=== PATIENT | female | born 1960 | race Caucasian/White ===

== ENCOUNTER → 2017-07-15 | Outpatient (REF) | payer OTHER ==
[2017-07-15 18:30] LABS: PLATELET COUNT, AUTOMATED 367 10^3/uL (150-450)
[2017-07-15 18:42] LABS: INR 0.88
[2017-07-15 18:43] LABS: PARTIAL THROMBOPLASTIN TIME 32.6 SECONDS (26.8-37.9)
== END ==
LOC: M LAB REF 17:26
DX: R91.8 Other nonspecific abnormal finding of lung field (principal)

== ENCOUNTER → 2017-08-06 | Outpatient (CLI) | payer OTHER ==
[~2017-08-06] MED LIST: ACETAMINOPHEN 325 MG TAB As Ordered; LIDOCAINE 1% MDV 20ML VIAL As Ordered
== END ==
LOC: M RADPRO 08:04
DX: C34.90 Malignant neoplasm of unspecified part of unspecified bronchus or lung (principal); R91.8 Other nonspecific abnormal finding of lung field; J95.811 Postprocedural pneumothorax; Z79.82 Long term (current) use of aspirin; Z79.899 Other long term (current) drug therapy; Z88.5 Allergy status to narcotic agent
CPT/HCPCS: 32405

== ENCOUNTER → 2017-08-24 | Outpatient (CLI) | payer OTHER | LOC: M PLARAD 13:19 | DX: C34.12 Malignant neoplasm of upper lobe, left bronchus or lung (principal) | CPT/HCPCS: 78815 ==

== ENCOUNTER → 2017-09-28 | Outpatient (CLI) | payer OTHER ==
[~2017-09-28] MED LIST changes: -ACETAMINOPHEN 325 MG TAB As Ordered; +ISOVUE-370 76% 100ML VIAL (Q9967) As Ordered; -LIDOCAINE 1% MDV 20ML VIAL As Ordered
== END ==
LOC: M RAD 14:00
DX: C43.1 Malignant melanoma of eyelid, including canthus (principal)

== ENCOUNTER → 2017-10-07 | Outpatient (CLI) | payer OTHER ==
[2017-10-07 12:32] LABS: ABG BASE EXCESS 6.2 (-2.0-2.0); ABG DEVICE ROOM AIR; ABG HCO3 30.4 MEQ/L (22.0-26.0); ABG O2 SATURATION 94.5 % (95.0-99.0); ABG PARTIAL PRESSURE O2 68.2 mmHg (75.0-100.0); ABG TOTAL CO2 31.7 MEQ/L (22.0-29.0); ABG pH (ARTERIAL) 7.478 UNITS (7.350-7.450)
[2017-10-07 12:45] LABS: CARBOXYHEMOGLOBIN 2.3 % (0.0-1.5)
[2017-10-07 12:46] LABS: HEMATOCRIT 44.5 % (36.0-47.0); HEMOGLOBIN 15.9 g/dl (12.0-15.5); MEAN CORPUSCULAR HEMOGLOBIN 32.7 pg (27.0-33.0); MEAN CORPUSCULAR HGB CONC 35.7 g/dl (32.0-36.5); MEAN CORPUSCULAR VOLUME 91.6 fl (80.0-96.0); PLATELET COUNT, AUTOMATED 341 10^3/uL (150-450); RED BLOOD COUNT 4.86 10^6/uL (4.00-5.40); RED CELL DISTRIBUTION WIDTH 12.4 % (11.5-14.5); WHITE BLOOD COUNT 12.5 10^3/uL (4.0-10.0)
[2017-10-07 12:51] LABS: APPEARANCE, URINE CLEAR (CLEAR); BACTERIA, URINE AUTO 2+ (NEGATIVE); BILIRUBIN, URINE AUTO NEGATIVE (NEGATIVE); BLOOD, URINE BLOOD NEGATIVE (NEGATIVE); COLOR, URINE STRAW (YELLOW); GLUCOSE, URINE (UA) AUTO NEGATIVE (NEGATIVE); KETONE, URINE AUTO NEGATIVE (NEGATIVE); LEUKOCYTE ESTERASE, URINE AUTO NEGATIVE (NEGATIVE); NITRITE, URINE AUTO NEGATIVE (NEGATIVE); PROTEIN, URINE AUTO NEGATIVE (NEGATIVE); RBC, URINE AUTO 1 /HPF (0-3); SPECIFIC GRAVITY URINE AUTO 1.002 (1.002-1.035); SQUAMOUS EPITHELIAL CELL UR AU 0 /HPF (0-6); UROBILINOGEN, URINE AUTO 0.2 mg/dL (0.0-2.0); WBC, URINE AUTO 1 /HPF (0-3)
[2017-10-07 12:57] LABS: INR 0.94; PROTHROMBIN TIME 12.7 SECONDS (12.1-14.4)
[2017-10-07 12:58] LABS: PARTIAL THROMBOPLASTIN TIME 31.7 SECONDS (25.4-37.6)
[2017-10-07 13:33] LABS: ANION GAP 9 MEQ/L (8-16); BLOOD UREA NITROGEN 10 MG/DL (7-18); CALCIUM LEVEL 9.4 MG/DL (8.5-10.1); CARBON DIOXIDE LEVEL 34 MEQ/L (21-32); CHLORIDE LEVEL 96 MEQ/L (98-107); CREATININE FOR GFR 0.71 MG/DL (0.55-1.30); GLOMERULAR FILTRATION RATE > 60.0 (>51); GLUCOSE, FASTING 91 MG/DL (70-100); SODIUM LEVEL 139 MEQ/L (136-145)
== END ==
LOC: M ADMPAT 10:04
DX: Z01.818 Encounter for other preprocedural examination (principal); C34.12 Malignant neoplasm of upper lobe, left bronchus or lung
CPT/HCPCS: 71046

== ENCOUNTER 2017-10-22 05:43 | Inpatient (IN) | payer OTHER ==
[2017-10-22] MEDS ORDERED: LIDOCAINE 1% MDV 20ML VIAL SQ (06:00)
[2017-10-22 06:18] LABS: CARBOXYHEMOGLOBIN 3.5 % (0.0-1.5)
[2017-10-22] MEDS: MUPIROCIN 2% OINT 22 GM TUBE TOP (06:40)
[2017-10-22 06:58] LABS: CARBOXYHEMOGLOBIN 2.4 % (0.0-1.5)
[2017-10-22] MEDS ORDERED: fentaNYL 100 MCG/2 ML INJECTION (J3010) As Ordered ×2 (07:06→14:12)
[2017-10-22] MEDS ORDERED: MIDAZOLAM INJ 2 MG/2 ML VIAL (J2250) As Ordered (07:06)
[2017-10-22] MEDS: MIDAZOLAM INJ 2 MG/2 ML VIAL (J2250) IV ×2 (07:09→07:34)
[2017-10-22] MEDS: fentaNYL 100 MCG/2 ML INJECTION (J3010) IV ×4 (07:10→14:15)
[2017-10-22] MEDS: CETACAINE SPRAY 5GM As Ordered (08:02)
[2017-10-22] MEDS ORDERED: ePHEDrine SULFATE 25 MG/5 ML(5MG/ML) SYRINGE As Ordered ×3 (09:29→13:32)
[2017-10-22] MEDS ORDERED: DESFLURANE 240 ML INHALANT As Ordered (09:29)
[2017-10-22] MEDS ORDERED: PHENYLephrine HCL 500 MCG/5 ML (100MCG/ML) SYRINGE (J2370) As Ordered (09:29)
[2017-10-22] MEDS ORDERED: fentaNYL 250 MCG/5 ML INJECTION (J3010) As Ordered (10:03)
[2017-10-22] MEDS ORDERED: METOCLOPRAMIDE INJ 10MG/2ML VIAL (J2765) As Ordered (10:03)
[2017-10-22] MEDS ORDERED: ROCURONIUM BROMIDE 50 MG/5 ML VIAL As Ordered ×2 (10:03→10:13)
[2017-10-22] MEDS ORDERED: BUPIVACAINE HCL 0.25% 30 ML VIAL As Ordered (10:03)
[2017-10-22] MEDS ORDERED: PROPOFOL 200 MG/20 ML VIAL As Ordered ×2 (10:03→13:32)
[2017-10-22] MEDS ORDERED: ONDANSETRON 4MG/2ML VIAL (J2405) As Ordered (10:03)
[2017-10-22] MEDS ORDERED: dexameTHASONE 4 MG/ML 1ML VIAL (J1100) As Ordered (10:03)
[2017-10-22] MEDS ORDERED: LIDOCAINE 2% INJ 100 MG/5 ML SDV (FOR ANES.) As Ordered (10:03)
[2017-10-22] MEDS ORDERED: GLYCOPYRROLATE INJ 0.2 MG/ML 2 ML VIAL As Ordered ×2 (10:03)
[2017-10-22] MEDS ORDERED: NEOSTIGMINE 10 MG/10 ML VIAL (J2710) As Ordered (10:03)
[2017-10-22] MEDS: BUPIVACAINE LIPOSOME/PF 1.3% 20 ML VIAL (13.3MG/ML)(EXPAREL) As Ordered (12:34)
[2017-10-22] MEDS: BUPIVACAINE HCL 0.5% 10 ML VIAL As Ordered (12:34)
[2017-10-22] MEDS ORDERED: METOCLOPRAMIDE INJ 10MG/2ML VIAL (J2765) IV (13:00)
[2017-10-22] MEDS ORDERED: WALLBOXKEY XX (13:00)
[2017-10-22] MEDS ORDERED: diphenhydrAMINE INJ 50MG/ML VIAL (J1200) IV (13:00)
[2017-10-22] MEDS ORDERED: FENTANYL/BUPIVACAINE/NACL BAG 250 ML EPIDURAL (13:00)
[2017-10-22] MEDS ORDERED: EPIDURAL/PCA KEYS XX (13:00)
[2017-10-22] MEDS ORDERED: NALOXONE INJ 0.4 MG/1 ML VIAL (J2310) IV (13:00)
[2017-10-22] MEDS: LEVALBUTEROL 1.25 MG/0.5 ML CONCENTRATE NEB NEB ×2 (13:11→20:29)
[2017-10-22] MEDS ORDERED: PERCOCET 5MG/325MG TAB PO ×2 (13:15→14:30)
[2017-10-22] MEDS ORDERED: BISACODYL 10 MG SUPP PR (13:15)
[2017-10-22] MEDS: FENTANYL/BUPIVACAINE/NACL BAG 250 ML EPIDURAL (13:45)
[2017-10-22 13:55] LABS: ABG BASE EXCESS 2.9 (-2.0-2.0); ABG HCO3 28.6 MEQ/L (22.0-26.0); ABG O2 SATURATION 97.6 % (95.0-99.0); ABG PARTIAL PRESSURE CO2 48.4 mmHg (35.0-45.0); ABG PARTIAL PRESSURE O2 104.1 mmHg (75.0-100.0); ABG TOTAL CO2 30.1 MEQ/L (22.0-29.0)
[2017-10-22 13:59] LABS: BASO % 0.1 % (0.0-1.0); HEMATOCRIT 37.3 % (36.0-47.0); HEMOGLOBIN 13.3 g/dl (12.0-15.5); IMMATURE GRANULOCYTE % 0.5 % (0-3.0); LYMPH # 1.3 10^3/uL (1.5-4.5); LYMPH % 5.8 % (24.0-44.0); MEAN CORPUSCULAR HEMOGLOBIN 32.5 pg (27.0-33.0); MEAN CORPUSCULAR HGB CONC 35.7 g/dl (32.0-36.5); MEAN CORPUSCULAR VOLUME 91.2 fl (80.0-96.0); MONO # 0.4 10^3/uL (0.0-0.8); MONO % 1.9 % (0.0-5.0); NEUTROPHILS # 20.4 10^3/uL (1.8-7.7); NEUTROPHILS % 91.7 % (36.0-66.0); PLATELET COUNT, AUTOMATED 290 10^3/uL (150-450); RED BLOOD COUNT 4.09 10^6/uL (4.00-5.40); RED CELL DISTRIBUTION WIDTH 12.4 % (11.5-14.5); WHITE BLOOD COUNT 22.3 10^3/uL (4.0-10.0)
[2017-10-22] MEDS: KETOROLAC 30 MG/ML VIAL (J1885) IV ×2 (14:00→20:25)
[2017-10-22] MEDS ORDERED: KETOROLAC 30 MG/ML VIAL (J1885) As Ordered (14:07)
[2017-10-22] MEDS: KCL 20MEQ IN D5/NS 1000ML 1,000 ML IV (14:15)
[2017-10-22 14:19] LABS: ANION GAP 9 MEQ/L (8-16); BLOOD UREA NITROGEN 10 MG/DL (7-18); CALCIUM LEVEL 8.4 MG/DL (8.5-10.1); CARBON DIOXIDE LEVEL 29 MEQ/L (21-32); CHLORIDE LEVEL 102 MEQ/L (98-107); CREATININE FOR GFR 0.84 MG/DL (0.55-1.30); GLOMERULAR FILTRATION RATE > 60.0 (>51); GLUCOSE, FASTING 147 MG/DL (70-100); POTASSIUM SERUM 2.3 MEQ/L (3.5-5.1); SODIUM LEVEL 140 MEQ/L (136-145)
[2017-10-22] MEDS: LR 1,000 ML IV (14:30)
[2017-10-22] MEDS ORDERED: ONDANSETRON 4MG/2ML VIAL (J2405) IV (14:30)
[2017-10-22] MEDS ORDERED: HYDROMORPHONE HCL 0.5 MG/ 0.5 ML SYRINGE (J1170 PER 1) IV (14:30)
[2017-10-22 15:19] LABS: ANION GAP 8 MEQ/L (8-16); BLOOD UREA NITROGEN 11 MG/DL (7-18); CALCIUM LEVEL 8.3 MG/DL (8.5-10.1); CARBON DIOXIDE LEVEL 30 MEQ/L (21-32); CHLORIDE LEVEL 102 MEQ/L (98-107); CREATININE FOR GFR 0.79 MG/DL (0.55-1.30); GLOMERULAR FILTRATION RATE > 60.0 (>51); GLUCOSE, FASTING 181 MG/DL (70-100); POTASSIUM SERUM 2.3 MEQ/L (3.5-5.1); SODIUM LEVEL 140 MEQ/L (136-145)
[2017-10-22] MEDS: KCL 10MEQ/100ML SWI (KRUN) 10 MEQ in APPROPRIATE DILUENT 1 EA IV ×5 (15:35→23:35)
[2017-10-22] MEDS ORDERED: KCL 10MEQ IN STERILE WATER 100ML As Ordered (15:41)
[2017-10-22] MEDS ORDERED: NS 500 ML IV (16:45)
[2017-10-22] MEDS: ceFAZolin SOD 1 GM in D5W MINI-BAG PLUS 50 ML IV ×2 (16:48→23:35)
[2017-10-22] MEDS: NS IV (16:49)
[2017-10-22] MEDS: KCL IV (16:49)
[2017-10-22] MEDS: MOM 30ML SUSPENSION UDC PO (17:41)
[2017-10-22] MEDS: NICOTINE 14 MG/24 HR TRANSDERMAL TD (17:45)
[2017-10-22] MEDS: OCUVITE 1 TAB PO (20:26)
[2017-10-22] MEDS: buPROPion (WELLBUTRIN SR) 100 MG SR TAB PO (20:26)
[2017-10-22] MEDS: DOCUSATE SODIUM 100 MG CAP PO (20:26)
[2017-10-22] MEDS: HEPARIN SOD (PORCINE) 5000 UNITS/ML VIAL SC (20:26)
[2017-10-22 20:37] LABS: ANION GAP 10 MEQ/L (8-16); BLOOD UREA NITROGEN 9 MG/DL (7-18); CALCIUM LEVEL 7.6 MG/DL (8.5-10.1); CARBON DIOXIDE LEVEL 29 MEQ/L (21-32); CHLORIDE LEVEL 105 MEQ/L (98-107); CREATININE FOR GFR 0.77 MG/DL (0.55-1.30); GLOMERULAR FILTRATION RATE > 60.0 (>51); GLUCOSE, FASTING 179 MG/DL (70-100); SODIUM LEVEL 144 MEQ/L (136-145)
[2017-10-22 20:41] LABS: POTASSIUM SERUM 2.6 MEQ/L (3.5-5.1)
[2017-10-22] MEDS: METOPROLOL SUCC (TopROL XL) 50MG **XL** TAB PO (21:00)
[2017-10-23] MEDS: KETOROLAC 30 MG/ML VIAL (J1885) IV ×4 (01:16→20:04)
[2017-10-23 01:42] LABS: ANION GAP 10 MEQ/L (8-16); BLOOD UREA NITROGEN 10 MG/DL (7-18); CALCIUM LEVEL 7.1 MG/DL (8.5-10.1); CARBON DIOXIDE LEVEL 27 MEQ/L (21-32); CHLORIDE LEVEL 105 MEQ/L (98-107); CREATININE FOR GFR 0.69 MG/DL (0.55-1.30); GLOMERULAR FILTRATION RATE > 60.0 (>51); GLUCOSE, FASTING 173 MG/DL (70-100); POTASSIUM SERUM 2.8 MEQ/L (3.5-5.1); SODIUM LEVEL 142 MEQ/L (136-145)
[2017-10-23] MEDS: LEVALBUTEROL 1.25 MG/0.5 ML CONCENTRATE NEB NEB ×4 (02:00→20:29)
[2017-10-23 02:33] LABS: MAGNESIUM LEVEL 1.5 MG/DL (1.8-2.4)
[2017-10-23] MEDS: POTASSIUM CHLORIDE 10 MEQ SR TABLET PO ×3 (02:43→20:05)
[2017-10-23] MEDS: MAG SULF 1GM/100ML (MAG RUN) 1 GM in APPROPRIATE DILUENT 1 EA IV (02:52)
[2017-10-23] MEDS: KCL 20MEQ IN D5/NS 1000ML 1,000 ML IV (05:11)
[2017-10-23] MEDS: KCL 10MEQ/100ML SWI (KRUN) 10 MEQ in APPROPRIATE DILUENT 1 EA IV ×3 (05:11→07:12)
[2017-10-23 06:53] LABS: ABG BASE EXCESS 1.9 (-2.0-2.0); ABG HCO3 26.4 MEQ/L (22.0-26.0); ABG O2 SATURATION 98.8 % (95.0-99.0); ABG PARTIAL PRESSURE CO2 40.9 mmHg (35.0-45.0); ABG PARTIAL PRESSURE O2 148.1 mmHg (75.0-100.0); ABG STANDARD HCO3 26.2 MEQ/L (22.0-26.0); ABG TOTAL CO2 27.7 MEQ/L (22.0-29.0); ABG pH (ARTERIAL) 7.428 UNITS (7.350-7.450)
[2017-10-23] MEDS: ONDANSETRON 4MG/2ML VIAL (J2405) IV ×2 (08:53→15:52)
[2017-10-23] MEDS: ceFAZolin SOD 1 GM in D5W MINI-BAG PLUS 50 ML IV ×2 (08:53→15:22)
[2017-10-23] MEDS: MOM 30ML SUSPENSION UDC PO (08:54)
[2017-10-23] MEDS: amLODIPine 10 MG TAB PO (08:54)
[2017-10-23] MEDS: ASPIRIN 325 MG TAB PO (08:54)
[2017-10-23] MEDS: SPIRONOLACTONE 25 MG TAB PO (08:54)
[2017-10-23] MEDS: PANTOPRAZOLE 40MG TAB (PROTONIX) PO (08:54)
[2017-10-23] MEDS: HEPARIN SOD (PORCINE) 5000 UNITS/ML VIAL SC ×2 (08:54→20:05)
[2017-10-23] MEDS: OCUVITE 1 TAB PO ×2 (08:54→20:03)
[2017-10-23] MEDS: ATORVASTATIN 20 MG TAB PO (08:55)
[2017-10-23] MEDS: buPROPion (WELLBUTRIN SR) 100 MG SR TAB PO ×2 (08:55→20:04)
[2017-10-23] MEDS: DOCUSATE SODIUM 100 MG CAP PO ×2 (08:55→20:03)
[2017-10-23] MEDS: NICOTINE 14 MG/24 HR TRANSDERMAL TD (08:55)
[2017-10-23] MEDS: VITAMIN D (CHOLECALCIFEROL) 400 INTERNATIONAL UNITS TAB PO (08:55)
[2017-10-23] MEDS ORDERED: CHLORTHALIDONE 25 MG TAB PO (09:00)
[2017-10-23 10:19] LABS: BASO % 0.2 % (0.0-1.0); EOS % 0.1 % (0.0-3.0); HEMATOCRIT 30.4 % (36.0-47.0); IMMATURE GRANULOCYTE % 0.5 % (0-3.0); LYMPH % 15.5 % (24.0-44.0); MEAN CORPUSCULAR HEMOGLOBIN 32.2 pg (27.0-33.0); MEAN CORPUSCULAR HGB CONC 35.2 g/dl (32.0-36.5); MEAN CORPUSCULAR VOLUME 91.6 fl (80.0-96.0); MONO # 0.9 10^3/uL (0.0-0.8); MONO % 4.8 % (0.0-5.0); NEUTROPHILS # 15.2 10^3/uL (1.8-7.7); NEUTROPHILS % 78.9 % (36.0-66.0); PLATELET COUNT, AUTOMATED 281 10^3/uL (150-450); RED BLOOD COUNT 3.32 10^6/uL (4.00-5.40); RED CELL DISTRIBUTION WIDTH 12.8 % (11.5-14.5); WHITE BLOOD COUNT 19.2 10^3/uL (4.0-10.0)
[2017-10-23 10:24] LABS: HEMOGLOBIN 10.7 g/dl (12.0-15.5)
[2017-10-23 10:51] LABS: ANION GAP 8 MEQ/L (8-16); BLOOD UREA NITROGEN 9 MG/DL (7-18); CALCIUM LEVEL 7.5 MG/DL (8.5-10.1); CARBON DIOXIDE LEVEL 28 MEQ/L (21-32); CHLORIDE LEVEL 106 MEQ/L (98-107); CREATININE FOR GFR 0.67 MG/DL (0.55-1.30); GLOMERULAR FILTRATION RATE > 60.0 (>51); GLUCOSE, FASTING 139 MG/DL (70-100); MAGNESIUM LEVEL 1.9 MG/DL (1.8-2.4); POTASSIUM SERUM 3.3 MEQ/L (3.5-5.1); SODIUM LEVEL 142 MEQ/L (136-145)
[2017-10-23] MEDS: FENTANYL/BUPIVACAINE/NACL BAG 250 ML EPIDURAL (11:52)
[2017-10-23 17:39] LABS: ANION GAP 8 MEQ/L (8-16); BLOOD UREA NITROGEN 9 MG/DL (7-18); CALCIUM LEVEL 7.8 MG/DL (8.5-10.1); CARBON DIOXIDE LEVEL 30 MEQ/L (21-32); CHLORIDE LEVEL 105 MEQ/L (98-107); CREATININE FOR GFR 0.61 MG/DL (0.55-1.30); GLOMERULAR FILTRATION RATE > 60.0 (>51); GLUCOSE, FASTING 150 MG/DL (70-100); POTASSIUM SERUM 3.2 MEQ/L (3.5-5.1); SODIUM LEVEL 143 MEQ/L (136-145)
[2017-10-23] MEDS: METOPROLOL SUCC (TopROL XL) 50MG **XL** TAB PO (20:03)
[2017-10-24] MEDS: ceFAZolin SOD 1 GM in D5W MINI-BAG PLUS 50 ML IV ×2 (00:08→08:21)
[2017-10-24] MEDS: LEVALBUTEROL 1.25 MG/0.5 ML CONCENTRATE NEB NEB ×4 (01:57→20:09)
[2017-10-24] MEDS: KETOROLAC 30 MG/ML VIAL (J1885) IV ×4 (02:54→20:09)
[2017-10-24 04:34] LABS: BASO % 0.3 % (0.0-1.0); EOS # 0.1 10^3/uL (0.0-0.50); EOS % 0.9 % (0.0-3.0); HEMATOCRIT 29.8 % (36.0-47.0); HEMOGLOBIN 10.1 g/dl (12.0-15.5); IMMATURE GRANULOCYTE % 0.5 % (0-3.0); LYMPH # 2.7 10^3/uL (1.5-4.5); LYMPH % 21.1 % (24.0-44.0); MEAN CORPUSCULAR HEMOGLOBIN 32.5 pg (27.0-33.0); MEAN CORPUSCULAR HGB CONC 33.9 g/dl (32.0-36.5); MEAN CORPUSCULAR VOLUME 95.8 fl (80.0-96.0); MONO # 0.6 10^3/uL (0.0-0.8); MONO % 4.3 % (0.0-5.0); NEUTROPHILS # 9.4 10^3/uL (1.8-7.7); NEUTROPHILS % 72.9 % (36.0-66.0); PLATELET COUNT, AUTOMATED 258 10^3/uL (150-450); RED BLOOD COUNT 3.11 10^6/uL (4.00-5.40); RED CELL DISTRIBUTION WIDTH 13.1 % (11.5-14.5); WHITE BLOOD COUNT 12.9 10^3/uL (4.0-10.0)
[2017-10-24 04:48] LABS: ANION GAP 6 MEQ/L (8-16); BLOOD UREA NITROGEN 9 MG/DL (7-18); CALCIUM LEVEL 7.9 MG/DL (8.5-10.1); CARBON DIOXIDE LEVEL 29 MEQ/L (21-32); CHLORIDE LEVEL 106 MEQ/L (98-107); CREATININE FOR GFR 0.58 MG/DL (0.55-1.30); GLOMERULAR FILTRATION RATE > 60.0 (>51); GLUCOSE, FASTING 109 MG/DL (70-100); SODIUM LEVEL 141 MEQ/L (136-145)
[2017-10-24] MEDS: MOM 30ML SUSPENSION UDC PO (08:22)
[2017-10-24] MEDS: NICOTINE 14 MG/24 HR TRANSDERMAL TD (08:22)
[2017-10-24] MEDS: DOCUSATE SODIUM 100 MG CAP PO ×2 (08:22→20:10)
[2017-10-24] MEDS: HEPARIN SOD (PORCINE) 5000 UNITS/ML VIAL SC ×2 (08:22→20:11)
[2017-10-24] MEDS: ATORVASTATIN 20 MG TAB PO (08:23)
[2017-10-24] MEDS: PANTOPRAZOLE 40MG TAB (PROTONIX) PO (08:23)
[2017-10-24] MEDS: ASPIRIN 325 MG TAB PO (08:23)
[2017-10-24] MEDS: OCUVITE 1 TAB PO ×2 (08:23→20:11)
[2017-10-24] MEDS: SPIRONOLACTONE 25 MG TAB PO (08:23)
[2017-10-24] MEDS: VITAMIN D (CHOLECALCIFEROL) 400 INTERNATIONAL UNITS TAB PO (08:23)
[2017-10-24] MEDS: buPROPion (WELLBUTRIN SR) 100 MG SR TAB PO ×2 (08:23→20:10)
[2017-10-24] MEDS: amLODIPine 10 MG TAB PO (08:24)
[2017-10-24] MEDS: POTASSIUM CHLORIDE 10% LIQ 20 MEQ/15 ML UDC PO ×2 (10:17→20:12)
[2017-10-24] MEDS ORDERED: CEPACOL LOZENGE PO (11:45)
[2017-10-24] MEDS: FUROSEMIDE 20 MG/2 ML VIAL (J1940) IV (11:56)
[2017-10-24] MEDS: SODIUM CHLORIDE HYPERTONIC 3% 15ML NEB SOL INH ×2 (12:32→14:03)
[2017-10-24] MEDS: FENTANYL/BUPIVACAINE/NACL BAG 250 ML EPIDURAL (12:46)
[2017-10-24 17:26] LABS: ANION GAP 5 MEQ/L (8-16); BLOOD UREA NITROGEN 8 MG/DL (7-18); CALCIUM LEVEL 8.1 MG/DL (8.5-10.1); CARBON DIOXIDE LEVEL 32 MEQ/L (21-32); CHLORIDE LEVEL 101 MEQ/L (98-107); CREATININE FOR GFR 0.62 MG/DL (0.55-1.30); GLOMERULAR FILTRATION RATE > 60.0 (>51); GLUCOSE, FASTING 101 MG/DL (70-100); SODIUM LEVEL 138 MEQ/L (136-145)
[2017-10-24] MEDS: METOPROLOL SUCC (TopROL XL) 50MG **XL** TAB PO (20:11)
[2017-10-25] MEDS: LEVALBUTEROL 1.25 MG/0.5 ML CONCENTRATE NEB NEB ×5 (01:34→20:50)
[2017-10-25] MEDS: KETOROLAC 30 MG/ML VIAL (J1885) IV ×4 (02:08→20:25)
[2017-10-25 04:46] LABS: BASO # 0.1 10^3/uL (0.0-0.2); BASO % 0.5 % (0.0-1.0); EOS # 0.3 10^3/uL (0.0-0.50); EOS % 2.5 % (0.0-3.0); HEMATOCRIT 30.9 % (36.0-47.0); HEMOGLOBIN 10.3 g/dl (12.0-15.5); IMMATURE GRANULOCYTE % 0.6 % (0-3.0); LYMPH % 25.6 % (24.0-44.0); MEAN CORPUSCULAR HEMOGLOBIN 32.3 pg (27.0-33.0); MEAN CORPUSCULAR HGB CONC 33.3 g/dl (32.0-36.5); MEAN CORPUSCULAR VOLUME 96.9 fl (80.0-96.0); MONO # 0.6 10^3/uL (0.0-0.8); MONO % 5.3 % (0.0-5.0); NEUTROPHILS # 7.6 10^3/uL (1.8-7.7); NEUTROPHILS % 65.5 % (36.0-66.0); PLATELET COUNT, AUTOMATED 269 10^3/uL (150-450); RED BLOOD COUNT 3.19 10^6/uL (4.00-5.40); RED CELL DISTRIBUTION WIDTH 12.9 % (11.5-14.5); WHITE BLOOD COUNT 11.6 10^3/uL (4.0-10.0)
[2017-10-25 04:58] LABS: ANION GAP 4 MEQ/L (8-16); BLOOD UREA NITROGEN 8 MG/DL (7-18); CALCIUM LEVEL 8.1 MG/DL (8.5-10.1); CARBON DIOXIDE LEVEL 31 MEQ/L (21-32); CHLORIDE LEVEL 106 MEQ/L (98-107); GLOMERULAR FILTRATION RATE > 60.0 (>51); GLUCOSE, FASTING 91 MG/DL (70-100); POTASSIUM SERUM 4.9 MEQ/L (3.5-5.1); SODIUM LEVEL 141 MEQ/L (136-145)
[2017-10-25] MEDS: SODIUM CHLORIDE HYPERTONIC 3% 15ML NEB SOL INH ×2 (08:16)
[2017-10-25] MEDS: HEPARIN SOD (PORCINE) 5000 UNITS/ML VIAL SC ×2 (08:42→20:27)
[2017-10-25] MEDS: SPIRONOLACTONE 25 MG TAB PO (08:42)
[2017-10-25] MEDS: POTASSIUM CHLORIDE 10% LIQ 20 MEQ/15 ML UDC PO ×2 (08:42→20:25)
[2017-10-25] MEDS: MOM 30ML SUSPENSION UDC PO (08:42)
[2017-10-25] MEDS: DOCUSATE SODIUM 100 MG CAP PO ×2 (08:43→20:29)
[2017-10-25] MEDS: ATORVASTATIN 20 MG TAB PO (08:43)
[2017-10-25] MEDS: amLODIPine 10 MG TAB PO (08:43)
[2017-10-25] MEDS: VITAMIN D (CHOLECALCIFEROL) 400 INTERNATIONAL UNITS TAB PO (08:43)
[2017-10-25] MEDS: OCUVITE 1 TAB PO ×2 (08:43→20:25)
[2017-10-25] MEDS: buPROPion (WELLBUTRIN SR) 100 MG SR TAB PO ×2 (08:43→20:24)
[2017-10-25] MEDS: PANTOPRAZOLE 40MG TAB (PROTONIX) PO (08:43)
[2017-10-25] MEDS: NICOTINE 14 MG/24 HR TRANSDERMAL TD (08:44)
[2017-10-25] MEDS: ASPIRIN 325 MG TAB PO (08:44)
[2017-10-25] MEDS: FUROSEMIDE 20 MG/2 ML VIAL (J1940) IV (09:18)
[2017-10-25] MEDS: FENTANYL/BUPIVACAINE/NACL BAG 250 ML EPIDURAL (14:46)
[2017-10-25] MEDS: METOPROLOL SUCC (TopROL XL) 50MG **XL** TAB PO (20:25)
[2017-10-26] MEDS: LEVALBUTEROL 1.25 MG/0.5 ML CONCENTRATE NEB NEB ×4 (02:00→20:15)
[2017-10-26] MEDS: KETOROLAC 30 MG/ML VIAL (J1885) IV ×4 (02:03→20:51)
[2017-10-26 06:41] LABS: BASO % 0.3 % (0.0-1.0); EOS # 0.2 10^3/uL (0.0-0.50); EOS % 1.8 % (0.0-3.0); HEMATOCRIT 31.6 % (36.0-47.0); HEMOGLOBIN 10.5 g/dl (12.0-15.5); IMMATURE GRANULOCYTE % 0.6 % (0-3.0); LYMPH # 2.5 10^3/uL (1.5-4.5); LYMPH % 21.2 % (24.0-44.0); MEAN CORPUSCULAR HEMOGLOBIN 31.9 pg (27.0-33.0); MEAN CORPUSCULAR HGB CONC 33.2 g/dl (32.0-36.5); MONO # 0.7 10^3/uL (0.0-0.8); MONO % 5.8 % (0.0-5.0); NEUTROPHILS # 8.4 10^3/uL (1.8-7.7); NEUTROPHILS % 70.3 % (36.0-66.0); PLATELET COUNT, AUTOMATED 312 10^3/uL (150-450); RED BLOOD COUNT 3.29 10^6/uL (4.00-5.40)
[2017-10-26 07:11] LABS: ANION GAP 6 MEQ/L (8-16); BLOOD UREA NITROGEN 9 MG/DL (7-18); CALCIUM LEVEL 8.2 MG/DL (8.5-10.1); CARBON DIOXIDE LEVEL 27 MEQ/L (21-32); CHLORIDE LEVEL 106 MEQ/L (98-107); CREATININE FOR GFR 0.46 MG/DL (0.55-1.30); GLOMERULAR FILTRATION RATE > 60.0 (>51); GLUCOSE, FASTING 95 MG/DL (70-100); POTASSIUM SERUM 5.1 MEQ/L (3.5-5.1); SODIUM LEVEL 139 MEQ/L (136-145)
[2017-10-26] MEDS: SODIUM CHLORIDE HYPERTONIC 3% 15ML NEB SOL INH ×3 (07:27→15:24)
[2017-10-26] MEDS: ASPIRIN 325 MG TAB PO (08:59)
[2017-10-26] MEDS: MOM 30ML SUSPENSION UDC PO (09:00)
[2017-10-26] MEDS: buPROPion (WELLBUTRIN SR) 100 MG SR TAB PO ×2 (09:00→20:51)
[2017-10-26] MEDS: ATORVASTATIN 20 MG TAB PO (09:00)
[2017-10-26] MEDS: amLODIPine 10 MG TAB PO (09:00)
[2017-10-26] MEDS: OCUVITE 1 TAB PO ×2 (09:00→20:51)
[2017-10-26] MEDS: SPIRONOLACTONE 25 MG TAB PO (09:00)
[2017-10-26] MEDS: VITAMIN D (CHOLECALCIFEROL) 400 INTERNATIONAL UNITS TAB PO (09:01)
[2017-10-26] MEDS: PANTOPRAZOLE 40MG TAB (PROTONIX) PO (09:01)
[2017-10-26] MEDS: DOCUSATE SODIUM 100 MG CAP PO ×2 (09:01→20:51)
[2017-10-26] MEDS: HEPARIN SOD (PORCINE) 5000 UNITS/ML VIAL SC ×2 (09:01→20:51)
[2017-10-26] MEDS: NICOTINE 14 MG/24 HR TRANSDERMAL TD (09:02)
[2017-10-26] MEDS: FUROSEMIDE 20 MG/2 ML VIAL (J1940) IV (09:02)
[2017-10-26] MEDS: FENTANYL/BUPIVACAINE/NACL BAG 250 ML EPIDURAL (14:48)
[2017-10-26] MEDS: NYSTATIN 500,000 U/5 ML SUSP UDC SS (20:50)
[2017-10-26] MEDS: METOPROLOL SUCC (TopROL XL) 50MG **XL** TAB PO (20:53)
[2017-10-26] MEDS: POTASSIUM CHLORIDE 10% LIQ 20 MEQ/15 ML UDC PO (22:19)
[2017-10-27] MEDS: LEVALBUTEROL 1.25 MG/0.5 ML CONCENTRATE NEB NEB ×4 (02:00→20:39)
[2017-10-27] MEDS: KETOROLAC 30 MG/ML VIAL (J1885) IV ×2 (02:22→10:03)
[2017-10-27 05:42] LABS: BASO # 0.1 10^3/uL (0.0-0.2); BASO % 0.5 % (0.0-1.0); EOS # 0.3 10^3/uL (0.0-0.50); EOS % 2.5 % (0.0-3.0); HEMATOCRIT 31.1 % (36.0-47.0); HEMOGLOBIN 10.5 g/dl (12.0-15.5); IMMATURE GRANULOCYTE % 1.1 % (0-3.0); LYMPH # 3.2 10^3/uL (1.5-4.5); LYMPH % 28.3 % (24.0-44.0); MEAN CORPUSCULAR HEMOGLOBIN 32.5 pg (27.0-33.0); MEAN CORPUSCULAR HGB CONC 33.8 g/dl (32.0-36.5); MEAN CORPUSCULAR VOLUME 96.3 fl (80.0-96.0); MONO # 0.7 10^3/uL (0.0-0.8); NEUTROPHILS % 61.6 % (36.0-66.0); PLATELET COUNT, AUTOMATED 345 10^3/uL (150-450); RED BLOOD COUNT 3.23 10^6/uL (4.00-5.40); RED CELL DISTRIBUTION WIDTH 12.7 % (11.5-14.5); WHITE BLOOD COUNT 11.4 10^3/uL (4.0-10.0)
[2017-10-27 05:56] LABS: ANION GAP 5 MEQ/L (8-16); BLOOD UREA NITROGEN 10 MG/DL (7-18); CALCIUM LEVEL 8.7 MG/DL (8.5-10.1); CARBON DIOXIDE LEVEL 27 MEQ/L (21-32); CHLORIDE LEVEL 108 MEQ/L (98-107); CREATININE FOR GFR 0.57 MG/DL (0.55-1.30); GLOMERULAR FILTRATION RATE > 60.0 (>51); GLUCOSE, FASTING 88 MG/DL (70-100); POTASSIUM SERUM 5.2 MEQ/L (3.5-5.1); SODIUM LEVEL 140 MEQ/L (136-145)
[2017-10-27] MEDS: SLF 3 ML SYR IV ×3 (06:00→20:53)
[2017-10-27] MEDS: SODIUM CHLORIDE HYPERTONIC 3% 15ML NEB SOL INH ×3 (08:06→13:51)
[2017-10-27] MEDS: NYSTATIN 500,000 U/5 ML SUSP UDC SS ×4 (10:01→20:51)
[2017-10-27] MEDS: VITAMIN D (CHOLECALCIFEROL) 400 INTERNATIONAL UNITS TAB PO (10:02)
[2017-10-27] MEDS: ASPIRIN 325 MG TAB PO (10:03)
[2017-10-27] MEDS: OCUVITE 1 TAB PO ×2 (10:03→20:51)
[2017-10-27] MEDS: HEPARIN SOD (PORCINE) 5000 UNITS/ML VIAL SC ×2 (10:03→20:53)
[2017-10-27] MEDS: ATORVASTATIN 20 MG TAB PO (10:04)
[2017-10-27] MEDS: DOCUSATE SODIUM 100 MG CAP PO ×2 (10:04→20:52)
[2017-10-27] MEDS: PANTOPRAZOLE 40MG TAB (PROTONIX) PO (10:04)
[2017-10-27] MEDS: buPROPion (WELLBUTRIN SR) 100 MG SR TAB PO ×2 (10:05→20:51)
[2017-10-27] MEDS: MOM 30ML SUSPENSION UDC PO (10:07)
[2017-10-27] MEDS: amLODIPine 10 MG TAB PO (10:07)
[2017-10-27] MEDS: NICOTINE 14 MG/24 HR TRANSDERMAL TD (10:08)
[2017-10-27] MEDS: SPIRONOLACTONE 25 MG TAB PO (12:35)
[2017-10-27] MEDS: FUROSEMIDE 40 MG/4 ML VIAL (J1940) IV (12:35)
[2017-10-27] MEDS: FENTANYL/BUPIVACAINE/NACL BAG 250 ML EPIDURAL (15:36)
[2017-10-27] MEDS: METOPROLOL SUCC (TopROL XL) 50MG **XL** TAB PO (20:51)
[2017-10-27] MEDS: ACETAMINOPHEN TAB 650MG DOSE (2X325MG) PO (20:52)
[2017-10-27] MEDS: POTASSIUM CHLORIDE 10% LIQ 20 MEQ/15 ML UDC PO (20:52)
[2017-10-28] MEDS: LEVALBUTEROL 1.25 MG/0.5 ML CONCENTRATE NEB NEB ×5 (01:06→23:49)
[2017-10-28] MEDS: SLF 3 ML SYR IV ×4 (04:42→22:00)
[2017-10-28 06:04] LABS: BASO # 0.1 10^3/uL (0.0-0.2); BASO % 0.6 % (0.0-1.0); EOS # 0.4 10^3/uL (0.0-0.50); EOS % 2.6 % (0.0-3.0); HEMATOCRIT 35.1 % (36.0-47.0); IMMATURE GRANULOCYTE % 1.9 % (0-3.0); LYMPH # 2.6 10^3/uL (1.5-4.5); LYMPH % 17.9 % (24.0-44.0); MEAN CORPUSCULAR HGB CONC 34.2 g/dl (32.0-36.5); MEAN CORPUSCULAR VOLUME 93.6 fl (80.0-96.0); MONO # 0.9 10^3/uL (0.0-0.8); MONO % 6.5 % (0.0-5.0); NEUTROPHILS # 10.2 10^3/uL (1.8-7.7); NEUTROPHILS % 70.5 % (36.0-66.0); PLATELET COUNT, AUTOMATED 400 10^3/uL (150-450); RED BLOOD COUNT 3.75 10^6/uL (4.00-5.40); RED CELL DISTRIBUTION WIDTH 12.9 % (11.5-14.5); WHITE BLOOD COUNT 14.4 10^3/uL (4.0-10.0)
[2017-10-28 06:55] LABS: ANION GAP 6 MEQ/L (8-16); BLOOD UREA NITROGEN 10 MG/DL (7-18); CALCIUM LEVEL 8.8 MG/DL (8.5-10.1); CARBON DIOXIDE LEVEL 29 MEQ/L (21-32); CHLORIDE LEVEL 101 MEQ/L (98-107); CREATININE FOR GFR 0.59 MG/DL (0.55-1.30); GLOMERULAR FILTRATION RATE > 60.0 (>51); GLUCOSE, FASTING 113 MG/DL (70-100); POTASSIUM SERUM 4.4 MEQ/L (3.5-5.1); SODIUM LEVEL 136 MEQ/L (136-145)
[2017-10-28] MEDS: ONDANSETRON 4MG/2ML VIAL (J2405) IV (06:56)
[2017-10-28] MEDS: SODIUM CHLORIDE HYPERTONIC 3% 15ML NEB SOL INH ×4 (07:51→23:49)
[2017-10-28] MEDS: ACETAMINOPHEN TAB 650MG DOSE (2X325MG) PO (08:15)
[2017-10-28] MEDS: MOM 30ML SUSPENSION UDC PO (09:00)
[2017-10-28] MEDS: SPIRONOLACTONE 25 MG TAB PO (10:16)
[2017-10-28] MEDS: amLODIPine 10 MG TAB PO (10:16)
[2017-10-28] MEDS: OCUVITE 1 TAB PO ×2 (10:16→21:27)
[2017-10-28] MEDS: VITAMIN D (CHOLECALCIFEROL) 400 INTERNATIONAL UNITS TAB PO (10:16)
[2017-10-28] MEDS: NICOTINE 14 MG/24 HR TRANSDERMAL TD (10:16)
[2017-10-28] MEDS: NYSTATIN 500,000 U/5 ML SUSP UDC SS ×4 (10:17→21:27)
[2017-10-28] MEDS: PANTOPRAZOLE 40MG TAB (PROTONIX) PO (10:17)
[2017-10-28] MEDS: ASPIRIN 325 MG TAB PO (10:17)
[2017-10-28] MEDS: HEPARIN SOD (PORCINE) 5000 UNITS/ML VIAL SC ×2 (10:17→21:22)
[2017-10-28] MEDS: DOCUSATE SODIUM 100 MG CAP PO ×2 (10:17→21:20)
[2017-10-28] MEDS: ATORVASTATIN 20 MG TAB PO (10:17)
[2017-10-28] MEDS: buPROPion (WELLBUTRIN SR) 100 MG SR TAB PO ×2 (10:17→21:27)
[2017-10-28] MEDS: NORCO, ANEXSIA 5/325MG TABLET (HYDROcodone/ACETAMINOPHEN) PO ×2 (14:07→17:21)
[2017-10-28] MEDS: METOPROLOL SUCC (TopROL XL) 50MG **XL** TAB PO (21:20)
[2017-10-28] MEDS: POTASSIUM CHLORIDE 10% LIQ 20 MEQ/15 ML UDC PO (21:20)
[2017-10-28] MEDS: PERCOCET 5MG/325MG TAB PO (21:21)
[2017-10-29] MEDS: LEVALBUTEROL 1.25 MG/0.5 ML CONCENTRATE NEB NEB ×3 (00:39→13:18)
[2017-10-29] MEDS: PERCOCET 5MG/325MG TAB PO ×2 (01:35→05:37)
[2017-10-29] MEDS: SLF 3 ML SYR IV ×2 (05:36→13:17)
[2017-10-29] MEDS: SODIUM CHLORIDE HYPERTONIC 3% 15ML NEB SOL INH ×2 (07:04→13:18)
[2017-10-29] MEDS: MOM 30ML SUSPENSION UDC PO (09:53)
[2017-10-29] MEDS: ATORVASTATIN 20 MG TAB PO (09:54)
[2017-10-29] MEDS: SPIRONOLACTONE 25 MG TAB PO (09:54)
[2017-10-29] MEDS: OCUVITE 1 TAB PO (09:54)
[2017-10-29] MEDS: ASPIRIN 325 MG TAB PO (09:54)
[2017-10-29] MEDS: VITAMIN D (CHOLECALCIFEROL) 400 INTERNATIONAL UNITS TAB PO (09:54)
[2017-10-29] MEDS: DOCUSATE SODIUM 100 MG CAP PO (09:55)
[2017-10-29] MEDS: PANTOPRAZOLE 40MG TAB (PROTONIX) PO (09:55)
[2017-10-29] MEDS: amLODIPine 10 MG TAB PO (09:55)
[2017-10-29] MEDS: NYSTATIN 500,000 U/5 ML SUSP UDC SS ×2 (09:55→13:16)
[2017-10-29] MEDS: buPROPion (WELLBUTRIN SR) 100 MG SR TAB PO (09:55)
[2017-10-29] MEDS: NICOTINE 14 MG/24 HR TRANSDERMAL TD (09:56)
[2017-10-29] MEDS: HEPARIN SOD (PORCINE) 5000 UNITS/ML VIAL SC (09:56)
[2017-10-29] MEDS: NORCO, ANEXSIA 5/325MG TABLET (HYDROcodone/ACETAMINOPHEN) PO ×2 (13:16→13:59)
== END 2017-10-29 16:46 | disposition home or self-care (01) | DRG 120 ==
LOC: M OR 05:43 → M ICU 15:43 → M PCU 10-25 23:13
PROVIDERS: Thoracic Surgery (Cardiothoracic Vascular Surgery)
PROC: 0BTG0ZZ Resection of Left Upper Lung Lobe, Open Approach (ICD-10-PCS; principal; 2017-10-22 07:30)
PROC: 07B70ZX Excision of Thorax Lymphatic, Open Approach, Diagnostic (ICD-10-PCS; 2017-10-22 07:30)
PROC: 0B9M8ZZ Drainage of Bilateral Lungs, Via Natural or Artificial Opening Endoscopic (ICD-10-PCS; 2017-10-22 07:30)
DX: C34.12 Malignant neoplasm of upper lobe, left bronchus or lung (principal); J86.0 Pyothorax with fistula; J44.9 Chronic obstructive pulmonary disease, unspecified; E87.6 Hypokalemia; T50.2X5A Adverse effect of carbonic-anhydrase inhibitors, benzothiadiazides and other diuretics, initial encounter; E78.00 Pure hypercholesterolemia, unspecified; F32.9 Major depressive disorder, single episode, unspecified; I10 Essential (primary) hypertension; F17.210 Nicotine dependence, cigarettes, uncomplicated; Z79.82 Long term (current) use of aspirin; Z86.73 Personal history of transient ischemic attack (TIA), and cerebral infarction without residual deficits

== ENCOUNTER → 2017-11-08 | Outpatient (CLI) | payer OTHER | LOC: M SMT 09:26 | DX: C34.12 Malignant neoplasm of upper lobe, left bronchus or lung (principal) | CPT/HCPCS: 71046 ==

== ENCOUNTER → 2017-11-29 | Outpatient (CLI) | payer OTHER | LOC: M SMT 09:13 | DX: Z48.3 Aftercare following surgery for neoplasm (principal) | CPT/HCPCS: 71046 ==

== ENCOUNTER → 2017-11-29 | Outpatient (REF) | payer OTHER ==
[2017-11-29 14:26] LABS: ANION GAP 9 MEQ/L (8-16); BLOOD UREA NITROGEN 8 MG/DL (7-18); CALCIUM LEVEL 9.1 MG/DL (8.5-10.1); CARBON DIOXIDE LEVEL 32 MEQ/L (21-32); CHLORIDE LEVEL 98 MEQ/L (98-107); CREATININE FOR GFR 0.71 MG/DL (0.55-1.30); GLOMERULAR FILTRATION RATE > 60.0 (>51); GLUCOSE, FASTING 79 MG/DL (70-100); POTASSIUM SERUM 3.6 MEQ/L (3.5-5.1); SODIUM LEVEL 139 MEQ/L (136-145)
== END ==
LOC: M LAB REF 13:37
DX: E87.6 Hypokalemia (principal)

== ENCOUNTER 2017-12-09 17:44 | Emergency (ER) | payer OTHER ==
[2017-12-09 19:25] LABS: POTASSIUM SERUM 3.5 MEQ/L (3.5-5.1)
[2017-12-09] MEDS: POTASSIUM CHLORIDE 10 MEQ SR TABLET PO (19:55)
== END 2017-12-09 20:08 | disposition home or self-care (01) ==
LOC: M ED 17:44
DX: E87.6 Hypokalemia (principal); I10 Essential (primary) hypertension; I25.10 Atherosclerotic heart disease of native coronary artery without angina pectoris; Z86.73 Personal history of transient ischemic attack (TIA), and cerebral infarction without residual deficits; Z79.899 Other long term (current) drug therapy; Z79.82 Long term (current) use of aspirin; Z88.5 Allergy status to narcotic agent
CPT/HCPCS: 84132

== ENCOUNTER → 2021-08-11 | Outpatient (CLI) | payer MEDICARE, OTHER ==
[~2021-08-11] MED LIST changes: +AMLO1TAB25 PO; +ASPI-255 PO; +ASPI325T57 PO; +ASPI81TA26 PO; +ATOR1TAB21 PO; +BUPR10TASR PO; +CHLO125TA PO; +CHLO25TA PO; +FLUTISP; +HYDR-3715 PO; -ISOVUE-370 76% 100ML VIAL (Q9967) As Ordered; +K-TA1TAB PO; +METO1TAB7 PO; +MICR10CA PO; +NICO14DI24 TD; +OCUVTAB4 PO; +RANI-397 PO; +VITA-137 PO
== END ==
LOC: M PLARAD 13:29
PROVIDERS: ATTEND Internal Medicine Hematology & Oncology
DX: C34.12 Malignant neoplasm of upper lobe, left bronchus or lung (principal)
CPT/HCPCS: 78815; A9552

== ENCOUNTER → 2021-09-29 | Outpatient (CLI) | payer MEDICARE ==
[~2021-09-29] MED LIST changes: +E-Z-PAQUE 96% w/w SUSP 176GM BTL As Ordered ONE; +PANT20TA6 PO; +TRAZ-252 PO
== END ==
LOC: M RAD 07:40
PROVIDERS: ATTEND Internal Medicine Gastroenterology
DX: R93.3 Abnormal findings on diagnostic imaging of other parts of digestive tract (principal)

== ENCOUNTER → 2021-10-08 | Outpatient (CLI) | payer MEDICARE ==
[~2021-10-08] MED LIST changes: -E-Z-PAQUE 96% w/w SUSP 176GM BTL As Ordered ONE
== END ==
LOC: M LABSMTC 10:46
PROVIDERS: ATTEND Anesthesiology
DX: Z01.818 Encounter for other preprocedural examination (principal); Z11.52 Encounter for screening for COVID-19

== ENCOUNTER 2021-10-13 12:00 | Day surgery (SDC) | payer MEDICARE ==
[~2021-10-13] VITALS: Ht 144.8 cm; Wt 51.3 kg
[~2021-10-13 12:00] MED LIST changes: +NS 1,000 ML IV ONE
[2021-10-13] MEDS ORDERED: fentaNYL 100 MCG/2 ML INJECTION As Ordered ONE (13:50)
[2021-10-13] MEDS ORDERED: LIDOCAINE 2% 100MG/5ML SDV (FOR ANES.) As Ordered ONE (13:50)
[2021-10-13] MEDS ORDERED: propofoL 200 MG/20 ML VIAL As Ordered ONE (13:50)
[2021-10-13 14:22] VITALS: BP 127/69
== END 2021-10-13 14:31 | disposition home or self-care (01) ==
LOC: M OPP 12:00
PROVIDERS: ATTEND Internal Medicine Gastroenterology
DX: K44.9 Diaphragmatic hernia without obstruction or gangrene (principal); R93.3 Abnormal findings on diagnostic imaging of other parts of digestive tract; K21.00 Gastro-esophageal reflux disease with esophagitis, without bleeding; J44.9 Chronic obstructive pulmonary disease, unspecified; I48.91 Unspecified atrial fibrillation; G45.9 Transient cerebral ischemic attack, unspecified; I10 Essential (primary) hypertension; E78.00 Pure hypercholesterolemia, unspecified; F17.200 Nicotine dependence, unspecified, uncomplicated; Z80.1 Family history of malignant neoplasm of trachea, bronchus and lung; Z79.02 Long term (current) use of antithrombotics/antiplatelets; Z79.82 Long term (current) use of aspirin; Z79.899 Other long term (current) drug therapy; Z88.5 Allergy status to narcotic agent
CPT/HCPCS: 43239; 88305; J3010

== ENCOUNTER → 2023-06-02 | Outpatient (CLI) | payer MEDICARE ==
[~2023-06-02] MED LIST changes: +ATOR40TA75; +CVS50CAP PO; +ECOT81TA5 PO; +GABA-284; +GASTROGRAFIN SOLUTION 30ML ONE; +ISOVUE-370 76% 100ML VIAL ONE; -NS 1,000 ML IV ONE; +PANT40TA29; +[UNRECOGNIZED DRUG - CODE] PO
== END ==
LOC: M PLAIMG 08:01
PROVIDERS: ATTEND Internal Medicine Hematology & Oncology
DX: Z85.118 Personal history of other malignant neoplasm of bronchus and lung (principal); Z90.49 Acquired absence of other specified parts of digestive tract; Z85.828 Personal history of other malignant neoplasm of skin; Z90.2 Acquired absence of lung [part of]
CPT/HCPCS: 71260; 74177; Q9963; Q9967

== ENCOUNTER → 2024-06-02 | Outpatient (CLI) | payer MEDICARE ==
[~2024-06-02] MED LIST changes: +B-122500 PO; -GASTROGRAFIN SOLUTION 30ML ONE; +ISOVUE-370 76% 100ML VIAL As Ordered ONE; -ISOVUE-370 76% 100ML VIAL ONE
== END ==
LOC: M RAD 11:15
PROVIDERS: ATTEND Specialist
DX: C34.90 Malignant neoplasm of unspecified part of unspecified bronchus or lung (principal); J43.2 Centrilobular emphysema; I25.10 Atherosclerotic heart disease of native coronary artery without angina pectoris; I70.0 Atherosclerosis of aorta; Z90.49 Acquired absence of other specified parts of digestive tract; N28.1 Cyst of kidney, acquired
CPT/HCPCS: 71260; Q9967